=== PATIENT | male | born 1975 | race Caucasian/White ===

== ENCOUNTER 2023-12-18 12:34 | Emergency (ER) | payer MEDICAID, SELFPAY ==
[2023-12-18] VITALS (8 sets, daily range): BP systolic 102–116; BP diastolic 70–97; PULSE 88–105; RESP 18–20; TEMP 36.9; O2SAT 94–100; BMI 26.3
--- NOTE | 2023-12-18 13:49 | US_ITS ---
WS: [id number] TESTICULAR ULTRASOUND HISTORY: testicle swelling COMPARISON: None available. TECHNIQUE: Real-time and color Doppler imaging or utilized to perform a testicular ultrasound. Right testicle: 4.1 cm x 2.1 cm x 2.7 cm. Normal size and echogenicity. No mass or torsion. Marked increased vascularity throughout the entire testicle. Small surrounding slightly complex hydrocele. Right epididymis: Marked increased vascularity. Heterogeneity throughout the epididymis. Epididymis i s markedly enlarged. Left testicle: 3.9 cm x 2.6 cm x 2.4 cm. Normal size and echogenicity. No mass or torsion. Normal color Doppler is present throughout. Systolic and diastolic velocities are both present. No significant hydrocele. Left epididymis: Normal epididymis with no increased vascularity. Bilateral scrotal wall thickening but much greater on the RIGHT. US/US scrotum [id number] IMPRESSION: 1. Severe RIGHT epididymoorchitis. 2. No mass or torsion.
[2023-12-18 13:51] LABS: Basophils # 0.1 10^3/uL (0.0-0.1); Basophils % 0.2 %; Lymphocytes # 3.9 10^3/uL (0.8-4.8); Lymphocytes % 15.4 %; Mean Corpuscular HGB Conc 33.1 g/dL (30-55); Mean Corpuscular Hemoglobin 29.5 pg (27-33); Mean Corpuscular Volume 89.2 fl (82-101); Mean Platelet Volume 10.1 fL (7.4-10.4); Monocytes # 1.9 10^3/uL (0.2-0.9); Monocytes % 7.6 %; Neutrophils # 18.91 10^3/uL (1.8-7.7); Neutrophils % 75.7 %; Nucleated Red Blood Cells % 0 %; Platelet Count 258 10^3/cmm (157-399); Red Blood Count 4.37 10^6/uL (3.85-5.65); Red Cell Distribution Width 12.7 % (12.1-15.1); White Blood Count 25.01 10^3/uL (3.29-11.43)
--- NOTE | 2023-12-18 13:56 | W.ED.MALEGU ---
HPI - Male Genitourinary General: Chief complaint: Urogenital-Male Stated complaint: swollen testicles, drainage from urethra Time Seen by Provider: 12/18/23 13:49 History of Present Illness: 48-year-old male patient comes in today for complaints of right testicular swelling and scrotal redness. Patient reports that he was hit in the groin by his dog when they were playing approximately 5 days ago. Patient had been on antibiotics prior to the event for a urinary tract infection. Patient alleges since the injury he has had increasing difficulty for urination and increasing pain and discomfort. Patient appears disheveled with poor hygiene. Patient appears in moderate pain. Patient appears nontoxic. Patient does state he has metastatic cancer of the pancreas and prostate. Patient presently is on blood thinners for history of a DVT. Associated symptoms: Reports urinary incontinence Related Data Previous Rx's Medication Instructions Recorded hydrocodone 5 mg-acetaminophen 325 1 tab PO Q6H PRN pain #12 tabs 12/18/23 mg tablet levofloxacin 750 mg tablet 750 mg PO DAILY 10 days #10 tabs 12/18/23 Allergies Allergy/AdvReac Type Severity Reaction Status Date / Time No Known Allergies Allergy Verified 12/18/23 12:59 Review of Systems : Reports: difficulty urinating, urinary incontinence and testicular pain Physical Exam Const: COMMON NORMALS: alert HENMT: COMMON NORMALS: normocephalic HEAD & SCALP: normocephalic Neck/C-Spine: COMMON NORMALS: full ROM Resp: COMMON NORMALS: normal respiratory effort Cardio: COMMON NORMALS: regular rate RATE: regular rate GI: COMMON NORMALS: non-tender : SCROTUM: Yes erythematous TESTES: Yes testicular mass Testicular mass laterality: right (Swelling of the right testicle area. Severe tenderness.) Extremity: COMMON NORMALS: normal to inspection Neuro: SENSORIUM/ORIENTATION: Yes alert Skin: NARRATIVE SKIN EXAM: Scrotal erythema. Course Vital Signs: Vital signs: Vital Signs Temperature 98.5 F 12/18/23 12:56 Pulse Rate 96 12/18/23 15:30 Respiratory Rate 18 12/18/23 15:30 Blood Pressure 116/97 12/18/23 15:30 Pulse Oximetry 99 12/18/23 15:30 Oxygen Delivery Me thod Room Air 12/18/23 15:30 [facility] - Male Medical Decision Making 48-year-old male patient comes in today with right testicular swelling and discomfort for the last 4 days. Patient states that he was wrestling with his dog and was hit in the groin at that time. Patient reports since then he has had difficulty urinating and has noticed some purulent drainage from the meatus. On exam patient has some erythema and testicular/epididymal swelling. Significant tenderness is noted to the area. Abdomen soft. Vital signs are normal. Differential diagnosis includes not limited to testicular hematoma, orchitis, epididymitis, metastatic lesion, urinary retention, UTI. CBC had a 25,000 white count. CMP noted some mild hyponatremia at 130. Ultrasound of the scrotum noted epididymal?orchitis to the right testicle. Patient will be placed on Levaquin 750 daily for the next 10 days. Patient was given 1 g of Rocephin and 750 mg of Levaquin in the ER. Discussion with patient noted that he had just finished a round of cefdinir for the orchitis. Patient was also given some medication to help with pain. Case management was requested to have patient follow-up with urology. Patient was able to urinate without difficulty in the ER. Lab Data 12/18/23 13:37 12/18/23 13:37 Radiology Impressions Scrotum Ultrasound 12/18/23 13:49 IMPRESSION: 1. Severe RIGHT epididymoorchitis. 2. No mass or torsion. Laboratory Results WBC 25.01 10^3/uL (3.29-11.43) H 12/18/23 13:37 RBC 4.37 10^6/uL (3.85-5.65) 12/18/23 13:37 Hgb 12.90 g/dL (11.27-16.99) 12/18/23 13:37 Hct 39.0 % (37-53) 12/18/23 13:37 MCV 89.2 fl (82-101) 12/18/23 13:37 MCH 29.5 pg (27-33) 12/18/23 13:37 MCHC 33.1 g/dL (30-55) 12/18/23 13:37 RDW 12.7 % (12.1-15.1) 12/18/23 13:37 Plt Count 258 10^3/cmm (157-399) 12/18/23 13:37 MPV 10.1 fL (7.4-10.4) 12/18/23 13:37 Neut % (Auto) 75.7 % 12/18/23 13:37 Lymph % (Auto) 15.4 % 12/18/23 13:37 [place] % (Auto) 7.6 % 12/18/23 13:37 Eos % (Auto) 0.0 % 12/18/23 13:37 Baso % (Auto) 0.2 % 12/18/23 13:37 Neut # (Auto) 18.91 10^3/uL (1.8-7.7) H 12/18/23 13:37 Lymph # (Auto) 3.9 10^3/uL (0.8-4.8) 12/18/23 13:37 [place] # (Auto) 1.9 10^3/uL (0.2-0.9) H 12/18/23 13:37 Eos # (Auto) 0.0 10^3/uL (0.0-0.8) 12/18/23 13:37 Baso # (Auto) 0.1 10^3/uL (0.0-0.1) 12/18/23 13:37 Nucleated RBC % (auto) 0 % 12/18/23 13:37 Nucleated RBCs # 0.0 /100WBC 12/18/23 13:37 Sodium 130 mmol/L (136-145) L 12/18/23 13:37 Potassium 4.1 mmol/L (3.5-5.1) 12/18/23 13:37 Chloride 96 mmol/L (98-107) L 12/18/23 13:37 Carbon Dioxide 21 mmol/L (22-29) L 12/18/23 13:37 Anion Gap 17.1 (5-19) 12/18/23 13:37 BUN 17 mg/dL (6-20) 12/18/23 13:37 Creatinine 1.1 mg/dL (0.7-1.2) 12/18/23 13:37 GFR Calculation 70.9 mL/min (90-130) L 12/18/23 13:37 Glucose 102 mg/dL (65-115) 12/18/23 13:37 Calculated Osmolality 272 mOsm/kg (285-295) L 12/18/23 13:37 Lactic Acid 1.4 mmol/L (0.5-2.2) 12/18/23 14:02 Calcium 8.9 mg/dL (8.5-10.5) 12/18/23 13:37 Total Bilirubin 0.5 mg/dL (0.15-1.2) 12/18/23 13:37 AST 12 U/L (0-40) 12/18/23 13:37 ALT 8 U/L (0-41) 12/18/23 13:37 Alkaline Phosphatase 104 U/L (40-130) 12/18/23 13:37 Total Protein 8.2 g/dL (6.6-8.7) 12/18/23 13:37 Albumin 3.5 g/dL (3.5-5.2) 12/18/23 13:37 Globulin 4.7 g/dL (1.3-4.6) H 12/18/23 13:37 Urine Color Dark yellow (Yellow) A 12/18/23 13:47 Urine Appearance Turbid (CLEAR) A 12/18/23 13:47 Urine pH 5.5 (5-7) 12/18/23 13:47 Ur Specific [place] 1.027 (1.005-1.030) 12/18/23 13:47 Urine Protein 3+ (Negative) A 12/18/23 13:47 Urine Glucose (UA) Negative (Normal) 12/18/23 13:47 Urine Ketones Trace (Negative) 12/18/23 13:47 Urine Blood 3+ (Negative) A 12/18/23 13:47 Urine Nitrate Positive (Negative) A 12/18/23 13:47 Urine Bilirubin Negative (Negative) 12/18/23 13:47 Urine Urobilinogen 1.0 mg/dL (Negative) 12/18/23 13:47 Ur Leukocyte Esterase 2+ (Negative) A 12/18/23 13:47 Urine RBC 11-20 /hpf (0-2) H 12/18/23 13:47 Urine WBC >100 /hpf (0-5) H 12/18/23 13:47 Ur Squamous Epith Cells 0-5 /hpf (0-5) 12/18/23 13:47 Amorphous Sediment Not Reportable 12/18/23 13:47 Urine Bacteria 4+ /hpf (NONE) H 12/18/23 13:47 Hyaline Casts 8.17 /lpf 12/18/23 13:47 All radiology interpretation(s) finalized by discharge Discharge Plan Discharge Patient Disposition: Home Clinical Impression: Epididymo-orchitis Condition: Stable Prescriptions: New levofloxacin 750 mg tablet 750 mg PO DAILY 10 Days Qty: 10 0RF hydrocodone-acetaminophen 5-325 mg tablet 1 tab PO Q6H PRN (Reason: pain) Qty: 12 0RF Discharge Orders: Discharge ED (Routine); Ordered 12/18/23 Ordered By: Tay Patrick Discharge Diet: Usual diet Discharge Activity: Increase activity as tolerated Patient Instructions: Epididymo-Orchitis (ED) Activity Restrictions/Additional Instructions: Home and rest. Drink plenty of water and fluids. Take medications as directed. Follow-up with urologist for further treatment. Return to ED for new concerns. Coding Level of Care Code ED Dental Resident for Philip Villalba
[2023-12-18] MEDS: morphine 4 mg/mL SDV 1 mL IVP (14:02)
[2023-12-18 14:06] LABS: Bacteria Urine 4+ /hpf; Hyaline Casts Urine 8.17 /lpf; Squamous Epithelial Cell Urine 0-5 /hpf (0-5); WBC Urine >100 /hpf (0-5)
[2023-12-18 14:06] LABS: Alanine Aminotransferase 8 U/L (0-41); Albumin Level 3.5 g/dL (3.5-5.2); Alkaline Phosphatase 104 U/L (40-130); Anion Gap 17.1 (5-19); Aspartate Amino Transferase 12 U/L (0-40); Blood Urea Nitrogen 17 mg/dL (6-20); Calcium 8.9 mg/dL (8.5-10.5); Carbon Dioxide 21 mmol/L (22-29); Chloride 96 mmol/L (98-107); Creatinine Clr Calc Pharmacy 98.3118; Globulin 4.7 g/dL (1.3-4.6); Glomerular Filtration Rate 70.9 mL/min (90-130); Glucose 102 mg/dL (65-115); Osmolality Calculated 272 mOsm/kg (285-295); Potassium 4.1 mmol/L (3.5-5.1); Sodium 130 mmol/L (136-145); Total Bilirubin 0.5 mg/dL (0.15-1.2); Total Protein 8.2 g/dL (6.6-8.7)
[2023-12-18 14:27] LABS: Add Urine Microscopic? YES; Bilirubin Urine Negative (Negative); Blood Urine 3+ (Negative); Glucose Urine UA Negative (Normal); Ketones Urine Trace (Negative); Leukocyte Esterase Urine 2+ (Negative); Nitrate Urine Positive (Negative); Specific Gravity, Urine 1.027 (1.005-1.030); Urine Appearance Turbid (CLEAR); Urine Color Dark Yellow (Yellow); pH Urine 5.5 (5-7)
[2023-12-18 14:27] LABS: Lactic Sepsis W/Reflex 1.4 mmol/L (0.5-2.2)
[2023-12-18 14:42] LABS: Protein Urine 3+ (Negative)
[2023-12-18 14:44] LABS: Add Urine Culture? Yes
[2023-12-18] MEDS: cefTRIAXone 1,000 mg SDV 1000 MG IVP (15:30)
[2023-12-18] MEDS: levoFLOXacin 750 mg Tablet PO (16:39)
[2023-12-18] MEDS: HYDROcodone-acetaminophen 5-325 mg Tablet 1 TAB PO (16:40)
[2023-12-19 11:59] LABS: Chlamydia Trachomatis RNA TMA NOT DETECTED (NOT DETECTED); Neisseria Gonorrhoeae RNA, TMA NOT DETECTED (NOT DETECTED); Trichomonas Vaginalis RNA NOT DETECTED (NOT DETECTED)
--- NOTE | 2023-12-22 08:58 | DCPLANNER ---
faxed packet to [facility]
== END 2023-12-18 16:49 | disposition home or self-care (01) ==
PROVIDERS: Emergency Medicine; Emergency Provider Nurse Practitioner Family
DX: N45.3 Epididymo-orchitis (principal)
CPT/HCPCS: 36415; 76870; 80053; 81001; 83605; 85025; 87077; 87086; 87186; 87491; 87591; 96374; 96375; 99285; J0696; J2270